=== PATIENT | female | born 2000 | race Caucasian/White ===

== ENCOUNTER 2021-08-15 18:21 | Emergency (ER) | payer OTHER, SELFPAY ==
[2021-08-15 18:54] VITALS: BP 113/80; PULSE 102; RESP 18; TEMP 37.3; O2SAT 100
[2021-08-15] MEDS: ONDANSETRON HCL ODT 4 MG TABLET PO (19:22)
--- NOTE | 2021-08-15 20:18 | ED.NAVMDI ---
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 Mother and patient states she has a shorter couple day history of diarrhea x2. No fever, tenesmus, blood, travel history, vomiting, abdominal pain. Prior to this patient has been on PPI for chronic nausea without weight loss. No loss of taste/smell, S OB, rash, vomiting, CP. Related Data Home Medications Medication Instructions Recorded Confirmed escitalopram oxalate 20 mg PO DAILY 08/15/21 08/15/21 norethindrone-e.estradiol-iron 1 tablet PO DAILY 08/15/21 08/15/21 [Ailyn 24 Fe] omeprazole 40 mg PO DAILY 08/15/21 08/15/21 Allergies Allergy/AdvReac Type Severity Reaction Status Date / Time Penicillins Allergy Intermediate Nausea and Verified 08/15/21 19:33 Vomiting amoxicillin [From Augmentin] Allergy Mild Rash Verified 08/15/21 19:32 clavulanic acid Allergy Mild Rash Verified 08/15/21 19:32 [From Augmentin] Review of Systems Review of Systems: General/Constitutional: No weight loss,fever Eyes: N0: Redness,discharge Ears/Nose/Throat: No: Epistaxis,ear discharge Respiratory: Denies: Hemoptysis Gastrointestinal: No Vomiting, Bleeding-rectal Skin: No Lumps, eruption Neurologic: No Focal Weakness,Sz Hematologic: Denies: Petechiae/Purpura Psychiatric: No: Suicida ideationl All Other Systems: Reviewed and Negative [facility] Comments At time of signature, agree with nursing past medical, surgical, social and family history. There is no relevant family history pertinent to the presenting complaint Exam Narrative: General Appearance: Lean/thin, well appearing, No distress EYE: PERRLA, Conjunctiva clear Ears: External ear normal Nose: Normal nose Mouth/Throat: Normal appearing, Normal lips Neck: Supple Respiratory: Airway patent, No respiratory distress Cardiovascular: RRR Abdomen: Soft, Non-tender, No massess, increased BS Musculoskeletal: Full ROM Skin: Warm, Dry Neurological: A&O x3, CN II-X intact Psychiatric: Normal mood, Normal affect Course Vital Signs Vital signs: Vital Signs Temperature 99.2 F 08/15/21 18:54 Pulse Rate 102 H 08/15/21 18:54 Respiratory Rate 18 08/15/21 18:54 Blood Pressure 113/80 08/15/21 18:54 Pulse Oximetry 100 08/15/21 18:54 Temperature 99.2 F 08/15/21 18:54 Pulse Rate 102 H 08/15/21 18:54 Respiratory Rate 18 08/15/21 18:54 Blood Pressure 113/80 08/15/21 18:54 Pulse Oximetry 100 08/15/21 18:54 Discharge Plan Discharge Clinical Impression: Diarrhea Patient Disposition: Home, Self-Care Condition: Stable Instructions: Acute Diarrhea (ED) Additional Instructions: May try OTC preparations for diarrhea like Imodium Prescriptions: New ondansetron HCl [Zofran] 4 mg tablet 4 mg PO BID PRN (Reason: nausea and vomiting) Qty: 10 RF: 2 No Action omeprazole 40 mg capsule,delayed release(DR/EC) 40 mg PO DAILY RF: 0 escitalopram oxalate 20 mg tablet 20 mg PO DAILY RF: 0 norethindrone-e.estradiol-iron [Ailyn 24 Fe] 1 mg-20 mcg (24)/75 mg (4) tablet 1 tablet PO DAILY RF: 0 Other Ambulatory Orders: SARS-CoV-2 RNA, Qual RT-PCR (Routine) Location: Determined by Patient Ordered By: Jose Joshi Follow-up/Referrals: Tigist,BOBBI Coronel [Primary Care Provider] - Stand Alone Forms: Work/School Release IP
== END 2021-08-15 20:22 | disposition home or self-care (01) ==
PROVIDERS: Emergency Provider Emergency Medicine; PCP Nurse Practitioner Adult Health
DX: R19.7 Diarrhea, unspecified (principal); Z20.822 Contact with and (suspected) exposure to COVID-19; K21.9 Gastro-esophageal reflux disease without esophagitis; F41.9 Anxiety disorder, unspecified
CPT/HCPCS: 99213; A9270; G0463

== ENCOUNTER 2022-01-19 01:16 | Day surgery (SDC) | payer OTHER, SELFPAY ==
[2022-01-02 13:01] VITALS: BMI 18.3
[2022-01-19] MEDS: LACTATED RINGERS 1,000 ML 150 ML IV CONT (11:27)
[2022-01-19 11:28] VITALS: BP 129/83; PULSE 107; RESP 20; TEMP 36.4; O2SAT 99; BMI 17.9
--- NOTE | 2022-01-19 11:29 | WPDANESEPPF ---
Anes - Initial Pre Proc Eval Procedure: Operation Date: 01/19/22 13:00 Proposed Procedures p Esophagogastroduodenoscopy - Naveen Paul MD Date/Time: 01/19/22 11:29 Surgeon: Naveen Paul MD Pre Op Diagnosis: nausea Patient Data Age: 21 Gender: F Height: 1.6 m Weight: 47 kg Allergies Allergy/AdvReac Type Severity Reaction Status Date / Time Penicillins Allergy Intermediate Nausea and Verified 01/02/22 13:00 Vomiting amoxicillin [From Augmentin] Allergy Mild Rash Verified 01/02/22 13:00 clavulanic acid Allergy Mild Rash Verified 01/02/22 13:00 [From Augmentin] Home Medications Medication Instructions Recorded Confirmed Type escitalopram oxalate 20 mg PO DAILY 08/15/21 01/02/22 History norethindrone-e.estradiol-iron 1 tablet PO DAILY 08/15/21 01/02/22 History [Ailyn 24 Fe] omeprazole 40 mg PO DAILY 08/15/21 01/02/22 History ondansetron HCl 4 mg tablet 4 mg PO Q8H PRN #90 tablet 11/30/21 01/02/22 Rx Patient hx anesthesia problems: none Family hx anesthesia problems: none Results Review: All pre-operative results and documents have been reviewed as part of the pre-operative evaluation. [facility] Past Medical History Medical History (Updated 11/30/21 @ 15:02 by Naveen Paul MD) Nausea Family History Family History Father Asthma Mother Thyroid activity decreased Social History Social History Smoking status: Never smoker Second hand tobacco smoke exposure: No Alcohol intake: never Substance use: never Living arrangements: with family Gender identity (if verbalized by the patient): Female Spiritual care concerns: No Anes - Eval Final PreProcedure Day of Procedure 01/19/22 11:29 Patient weight: normal Heart: regular rate and rhythm Lungs: clear to auscultation Airway: Mallampati scale class 1 Neurological: alert and oriented Last oral intake: >/= 8 hours ASA classification: II Emergent: no Anesthetic plan: proceed Anesthesia type and monitoring: general GIVS and standard monitoring Results Review: All pre-operative results and documents have been reviewed as part of the pre-operative evaluation. Informed Consent: The patient's anesthetic plan and its attendant risks and benefits were discussed with the patient/family/POA. Questions were solicited and answers provided to the satisfaction of the patient/family/POA.
--- NOTE | 2022-01-19 11:51 | PM.HPGS ---
History of Present Illness History of Present Illness Consent: Risks, benefits, and alternatives have been discussed and questions answered. Patient agrees to proceed with procedure. Chief complaint: nausea Narrative: Joanna Marquez is a 21 year old female with nausea and abdominal discomfort, better with ppi in the morning and zofran prn Review of Systems Constitutional: Constitutional: Denies headache(s) and Denies weakness Eyes: Eyes: Denies blurry vision ENT: Reports Normal hearing present, Denies headache(s) and Denies neck pain Cardiovascular: Cardiovascular: Denies chest pain and Denies dyspnea Respiratory: Respiratory: Denies dyspnea Gastrointestinal: Gastrointestinal: Reports no additional gastrointestinal complaints Genitourinary: Genitourinary: Denies dysuria Musculoskeletal: Musculoskeletal: Denies neck pain Integumentary/Breasts: Skin/Breast: Denies dry skin Neurologic: Reports Normal hearing present, Denies headache(s) and Denies weakness Psychiatric: Psychiatric: Denies anxiety Endocrine: Endocrine: Denies change in body appearance Hematologic/Lymphatic: Hematologic/Lymphatic: Denies easy bleeding Allergic/Immunologic: Allergic/Immunologic: Denies urticaria PMFSH Past Medical History Medical History (Updated 11/30/21 @ 15:02 by Naveen Paul MD) Nausea Family History Family History Father Asthma Mother Thyroid activity decreased Social History Social History Smoking status: Never smoker Second hand tobacco smoke exposure: No Alcohol intake: never Substance use: never Living arrangements: with family Gender identity (if verbalized by the patient): Female Spiritual care concerns: No Meds Home Medications and Allergies Home Medications Medication Instructions Recorded Confirmed Type escitalopram oxalate 20 mg PO DAILY 08/15/21 01/02/22 History norethindrone-e.estradiol-iron 1 tablet PO DAILY 08/15/21 01/02/22 History [Ailyn 24 Fe] omeprazole 40 mg PO DAILY 08/15/21 01/02/22 History ondansetron HCl 4 mg tablet 4 mg PO Q8H PRN #90 tablet 11/30/21 01/02/22 Rx Allergies Allergy/AdvReac Type Severity Reaction Status Date / Time Penicillins Allergy Intermediate Nausea and Verified 01/02/22 13:00 Vomiting amoxicillin [From Augmentin] Allergy Mild Rash Verified 01/02/22 13:00 clavulanic acid Allergy Mild Rash Verified 01/02/22 13:00 [From Augmentin] Vital Signs Vital Signs - 24 hr 01/19/22 11:28 Temperature 97.6 F Pulse Rate 107 H Respiratory Rate 20 Blood Pressure 129/83 Pulse Oximetry 99 Exam Const: General: comfortable and no acute distress HENMT: General nose exam: Normal nares present Eyes: General: appearance normal, both eyes and all related structures Neck: Neck: no JVD Resp: Auscultation: clear to auscultation bilaterally Cardio: Rate: regular rate Rhythm: regular rhythm GI: Inspection: non-distended GI Palp: Yes Soft to palpation Skin: General skin exam: normal color Neuro: General: gait normal Speech: normal speech Extrem: General: normal to inspection Psych: Mental Status: mental status grossly normal Assessment and Plan Assessment and plan (1) Nausea: Code(s): R11.0 - Nausea Status: Acute Assessment and Plan: egd with bx, on zofran prn (2) GERD (gastroesophageal reflux disease): Code(s): K21.9 - Gastro-esophageal reflux disease without esophagitis Status: Acute
[2022-01-19 12:07] VITALS: BP 90/57; PULSE 88; RESP 21; O2SAT 99
[2022-01-19 12:17] VITALS: BP 105/72; PULSE 76; RESP 15; O2SAT 100
[2022-01-19 12:27] VITALS: BP 101/67; PULSE 81; RESP 38; O2SAT 100
== END 2022-01-19 12:36 | disposition home or self-care (01) ==
PROVIDERS: PCP Nurse Practitioner Adult Health; Visit Provider Internal Medicine Gastroenterology
PROC: 0DJ08ZZ Inspection of Upper Intestinal Tract, Via Natural or Artificial Opening Endoscopic (ICD-10-PCS; CPT 43235; principal; 2022-01-19 13:00)
DX: R10.13 Epigastric pain (principal); R11.0 Nausea; K21.9 Gastro-esophageal reflux disease without esophagitis
CPT/HCPCS: 43239; 88305; J2704; J7120

== ENCOUNTER 2022-02-06 08:41 | Outpatient (CLI) | payer OTHER, SELFPAY ==
--- NOTE | ~2022-02-06 | US_ITS ---
US abdomen complete EXAMINATION: US Abdomen Complete INDICATION: Nausea for 5-6 months PROCEDURE: Realtime High Resolution abdomen ultrasound. COMPARISON: No prior studies for comparison FINDINGS: Gallbladder within normal limits. No gallstones, pericholecystic fluid, gallbladder wall t hickening or biliary dilatation. Common bile duct measures 3 mm. Liver echotexture within normal limits without focal mass. Pancreas within normal limits. Pancreati c tail is obscured by bowel gas. Spleen is unremarkeable. Renal echotexture is within normal limits bilaterally without hydronephrosis, contour deforming mass or renal stone. Right kidney measures 10.3 cm. Left kidney measures 10.5 cm. Visualized aspects of the aorta and IVC are within normal limits. Portal vein is patent. No sonograph ic George's sign indicated by the technologist. IMPRESSION: 1: Normal abdominal ultrasound. Reviewed, dictated and finalized at location A.
== END 2022-02-06 08:42 | disposition home or self-care (01) ==
PROVIDERS: PCP Nurse Practitioner Adult Health; Visit Provider Internal Medicine Gastroenterology
DX: R11.0 Nausea (principal); K21.9 Gastro-esophageal reflux disease without esophagitis
CPT/HCPCS: 76700

== ENCOUNTER 2022-08-27 10:43 | Emergency (ER) | payer OTHER, SELFPAY ==
[2022-08-27 10:53] VITALS: BP 117/70; PULSE 118; RESP 20; TEMP 36.4; O2SAT 99
--- NOTE | 2022-08-27 11:06 | ED.URI ---
HPI - URI/Sore Throat General Chief Complaint: Upper Respiratory Infection Stated Complaint: fever,cough,sorethroat Time Seen by Provider: 08/27/22 11:06 Source: patient and RN notes reviewed Mode of arrival: ambulatory Limitations: no limitations History of Present Illness HPI Narrative: 22-year-old female presented for complaint of sore throat, headache, body aches, sinus pressure/congestion, cough, fever/chills. onset 2 days. She denies shortness of breath, wheezing, abdominal pain, vomiting or diarrhea. She is taking Mucinex for symptoms. MD elicited complaint: cough Related Data Home Medications Medication Instructions Recorded Confirmed escitalopram oxalate 20 mg tablet 20 mg PO DAILY 08/15/21 08/27/22 norethindrone 1 mg-ethinyl 1 tablet PO DAILY 08/15/21 08/27/22 estradiol 20 mcg (24)-iron 75 mg (4) tablet (Ailyn 24 Fe) Allergies Allergy/AdvReac Type Severity Reaction Status Date / Time Penicillins Allergy Intermediate Nausea and Verified 08/27/22 10:52 Vomiting amoxicillin [From Augmentin] Allergy Mild Rash Verified 08/27/22 10:52 clavulanic acid Allergy Mild Rash Verified 08/27/22 10:52 [From Augmentin] Review of Systems Review of Systems: ROS per HPI PMFSH Past Medical History Medical History Nausea Family History Family History Father Asthma Mother Thyroid activity decreased Social History Social History Smoking status: Never smoker Second hand tobacco smoke exposure: No Alcohol intake: never Substance use: never Gender identity (if verbalized by the patient): Female Spiritual care concerns: No Exam Narrative: GENERAL: Ill-appearing, nontoxic no acute distress. HEAD: Normocephalic EYES: PERRLA, conjunctivae clear ENT: Mucous membranes moist. TMs pearly emanuel with dull light reflex bilaterally; no tragal tenderness. Oropharynx erythematous without lesions or exudate CHEST: Clear to auscultation, breath sounds equal. HEART: Regular rate and rhythm. No murmur heard. SKIN: Warm, dry, no rash. NEURO: Alert Course Course Emergency Course: Patient is aware of diagnosis, understands and agrees to treatment plan. Anticipatory guidance given. Patient agrees to follow-up as directed and is aware of reasons to seek care at the emergency department. Portions of this record may have been created with voice recognition software Level of Care: Express Care Visit Vital Signs Vital signs: Vital Signs Temperature 97.6 F 08/27/22 10:53 Pulse Rate 118 H 08/27/22 10:53 Respiratory Rate 20 08/27/22 10:53 Blood Pressure 117/70 08/27/22 10:53 Pulse Oximetry 99 08/27/22 10:53 Oxygen Delivery Room Air 08/27/22 10:53 Temperature 97.6 F 08/27/22 10:53 Pulse Rate 118 H 08/27/22 10:53 Respiratory Rate 20 08/27/22 10:53 Blood Pressure 117/70 08/27/22 10:53 Pulse Oximetry 99 08/27/22 10:53 Oxygen Delivery Room Air 08/27/22 10:53 reviewed MDM - URI/Sore Throat MDM Narrative Medical decision making narrative: flu positive. Results reviewed with patient. Advised supportive measures and signs/symptoms to go to the ER. Pt is appropriate for outpt treatment and f/u. Differential Diagnosis Differential diagnosis: Likely upper respiratory infection, sinusitis, viral infection and influenza Discharge Plan Discharge Clinical Impression: Influenza Patient Disposition: Home, Self-Care Condition: Stable Instructions: Influenza (ED) Additional Instructions: Influenza positive You should avoid crowds until you are fever free for 24 hours without the use of fever reducing medications, or the symptoms are improved Rest. Drink plenty of fluids. Tylenol and ibuprofen every 8 hours as needed for pain/fever Recommend Flonase spray and Zyrtec (or Clariti
== END 2022-08-27 11:22 | disposition home or self-care (01) ==
PROVIDERS: Emergency Provider Nurse Practitioner Family
DX: J10.1 Influenza due to other identified influenza virus with other respiratory manifestations (principal)
CPT/HCPCS: 87804; 99213; G0463

== ENCOUNTER 2023-07-30 15:10 | Emergency (ER) | payer OTHER, SELFPAY ==
[2023-07-30] VITALS (24 sets, daily range): BP systolic 96–113; BP diastolic 67–83; PULSE 68–120; RESP 12–20; TEMP 36.5; O2SAT 90–100
--- NOTE | ~2023-07-30 | CT_ITS ---
EXAMINATION: CT abdomen pelvis w con DATE: 07/30/2023 18:29 INDICATION: abd pain, nausea TECHNIQUE: Computed tomography (CT) of the abdomen and pelvis was performed with 100 mL Omnipaque-350 intravenous contrast. Automated exposure control and iterative reconstruction technique were employe d. The dose-length product was 199.95 mGy-cm. COMPARISON: None. FINDINGS: Lower thorax: Unremarkable Liver: Normal. Biliary/Gallbladder: Gallbladder is normal. No bile duct dilation. Pancreas: No mass or duct dilation. Spleen: Normal. Adrenals:No mass. Kidneys: No suspicious mass, obstructing stone, or hydronephrosis. GI tract: Esophageal and gastric wall edema. No small or large bowel dilation. Appendix not confident ly visualized due to the paucity of intra-abdominal fat and multiple loops of overlapping bowel. Mesentery/Peritoneum: No ascites, mass, or free air. Retroperitoneum: No mass. Pelvis: Pelvic organs are within normal limits. Soft Tissues: Soft tissues and body wall unremarkable. Bones: No acute osseous finding. IMPRESSION: Mild esophagitis/gastritis. Otherwise, no abdominopelvic process detected. Reviewed, dictated and finalized at location K. [facility]
--- NOTE | 2023-07-30 16:16 | ED.ABDPAIN ---
HPI - Abdominal Pain General Chief Complaint: Abdominal Pain <[place] Dubose Last Filed: 07/30/23 16:27> Stated Complaint: abd pain/loss of appetite <[place] Dubose Last Filed: 07/30/23 16:27> Time Seen by Provider: 07/30/23 17:13 <[place] Dubose Last Filed: 07/30/23 16:27> Source: patient <[place] Dubose Last Filed: 07/30/23 16:27> Mode of arrival: ambulatory <[place] Dubose Last Filed: 07/30/23 16:27> Limitations: no limitations <[place] Dubose Last Filed: 07/30/23 16:27> History of Present Illness HPI narrative: Patient is a 22 y/o female who presents to the ED with c/o abdominal pain and loss of appetite. Patient reports having intermittent abdominal pain for the last several months. She states pain is mostly in her lower abdomen, but does change locations. She has seen her PCP and OBGYN for this and had two negative USs and a negative CT scan. She states the pain has worsened to the point it has been interfering with her daily life which prompted her presentation today. The pain was thought to have been related to constipation, and patient was rx'd something for this. She states her BMs have been normal for the most part. Last BM this morning. Reports occasional nausea and loss of appetite for the last 2 weeks, denies diarrhea, fevers, dysuria, hematuria, abnormal vaginal bleeding. <[place] Dubose Last Filed: 07/30/23 16:27> Related Data Home Medications: Home Medications Medication Instructions Recorded Confirmed escitalopram oxalate 20 mg tablet 20 mg PO DAILY 08/15/21 08/27/22 norethindrone 1 mg-ethinyl 1 tablet PO DAILY 08/15/21 08/27/22 estradiol 20 mcg (24)-iron 75 mg (4) tablet (Ailyn 24 Fe) <[place] Dbuose Last Filed: 07/30/23 16:27> Allergies/Adverse Reactions: Allergies Allergy/AdvReac Type Severity Reaction Status Date / Time Penicillins Allergy Intermediate Nausea and Verified 07/30/23 16:43 Vomiting prochlorperazine Allergy Intermediate Anxiety Verified 07/30/23 20:21 [From Compazine] amoxicillin [From Augmentin] Allergy Mild Rash Verified 07/30/23 16:43 clavulanic acid Allergy Mild Rash Verified 07/30/23 16:43 [From Augmentin] <Massiel Parker PA-C - Last Filed: 07/30/23 16:27> Review of Systems Review of Systems: CONSTITUTIONAL: Denies fever GASTROINTESTINAL: Reports abdominal pain, nausea. Denies vomiting, or diarrhea. GENITOURINARY: Denies dysuria <Roro Andersen PA-C - Last Filed: 07/30/23 20:29> All systems reviewed & are unremarkable except as noted in HPI and below <Roro Andersen PA-C - Last Filed: 07/30/23 20:29> Constitutional: Constitutional: Reports fatigue, Denies fever(s) and Reports weakness <Massiel Parker PA-C - Last Filed: 07/30/23 16:27> Gastrointestinal: Gastrointestinal: Reports abdominal pain, Denies constipation, Denies diarrhea, Reports nausea and Denies vomiting <Massiel Parker PA-C - Last Filed: 07/30/23 16:27> Genitourinary: Genitourinary: Denies abnormal vaginal bleeding, Denies hematuria and Denies dysuria <Massiel Parker PA-C - Last Filed: 07/30/23 16:27> [facility] Past Medical History Medical History: Medical History Nausea <Massiel Parker PA-C - Last Filed: 07/30/23 16:27> Family History Family History: Family History Father Asthma Mother Thyroid activity decreased <Massiel Parker PA-C - Last Filed: 07/30/23 16:27> Social History Social History: Social History Smoking status: Never smoker Second hand tobacco smoke exposure: No Alcohol intake: never Substance use: never Living arrangements: with family Occupation/Educ
--- NOTE | 2023-07-30 16:30 | ECG_ITS ---
Measurements Intervals [place] Rate: 77 P: 76 [place]: 160 QRS: 72 QRSD: 93 T: 57 QT: 389 QTc: 442 Interpretive Statements SINUS RHYTHM INCOMPLETE RIGHT BUNDLE BRANCH BLOCK BASELINE WANDER- II, III BORDERLINE ECG NO PREVIOUS ECG AVAILABLE FOR COMPARISON Electronically Signed On 07-30-2023 16:55:24 LICENSED LO[employer] OFFICER ASSISTANT by Tod Nassar D.O.
[2023-07-30 16:40] LABS: Glucose Point of Care 107 mg/dl (65-105)
[2023-07-30] MEDS: SODIUM CHLORIDE 0.9% IV 1,000 ML 999 ML IV CONT ×2 (16:41→17:33)
[2023-07-30 16:46] LABS: Basophils Absolute Auto 0.1 K/mm3 (0.0-0.1); Basophils Percent Auto 0.9 % (0.2-1.2); Eosinophils Percent Auto 0.5 % (0-4.4); Hematocrit 48.8 % (37.0-47.0); Hemoglobin 16.4 g/dL (12.0-15.0); Immature Granulocyte Absolute 0.01 K/mm3 (0.00-0.031); Immature Granulocyte Percent A 0.2 % (0-0.5); Lymphocytes Absolute Auto 2.23 K/mm3 (0.9-3.2); Lymphocytes Percent Auto 35.3 % (18.3-44.2); Mean Corpuscular HGB Conc 33.6 g/dl (32-36); Mean Corpuscular Hemoglobin 29.1 pg (26-34); Mean Corpuscular Volume 86.7 fl (80-100); Mean Platelet Volume 10.9 fl (7.4-10.4); Monocytes Absolute Auto 0.3 K/mm3 (0.1-0.6); Monocytes Percent Auto 4.3 % (2.6-8.5); Neutrophils Absolute Auto 3.7 K/mm3 (1.3-6.7); Neutrophils Percent Auto 58.8 % (45.5-73.1); Platelet Count Result 258 k/mm3 (150-375); Red Blood Count 5.63 M/mm3 (4.2-5.4); White Blood Count 6.3 K/mm3 (4.5-10.0)
[2023-07-30 17:00] LABS: Alanine Aminotransferase 22 U/L (6-35); Albumin Level 4.8 g/dL (3.5-5.1); Alkaline Phosphatase 41 U/L (38-126); Anion Gap 11 mmol/L (8-16); Aspartate Amino Transferase 29 U/L (14-36); Bilirubin,Total 0.7 mg/dL (0.2-1.3); Blood Urea Nitrogen 8 mg/dL (7-17); Calcium 9.7 mg/dL (8.4-10.2); Carbon Dioxide 25 mmol/L (22-30); Chloride 105 mmol/L (98-107); Estimated CRCL calculation 81 ml/min; Estimated Glomerular Filt Rate > 60; Glucose 92 mg/dL (65-110); Magnesium 1.9 mg/dL (1.6-2.3); Potassium 3.9 mmol/L (3.4-5.0); Sodium 141 mmol/L (137-145)
[2023-07-30 17:05] LABS: Appearance Urine Cloudy (Clear); Bacteria Urine Rare /hpf; Bilirubin Urine Negative (Negative); Color Urine Yellow (Yellow); Glucose Urine UA Negative (Negative); Ketones Urine Negative (Negative); Leukocyte Esterase Ur 1+ LEU/UL (Negative); Need Manual Microscopic Reviewed; Nitrate Urine Negative (Negative); Non Pathogenic Casts 0-2; Protein Urine Negative (Negative); Specific Grav Ur 1.024 (1.001-1.035); Squamous Epithelial Cell Urine Occasional /hpf (Few); WBC Urine 0-5 /hpf
[2023-07-30 17:07] LABS: Add Urine Microscopic? YES
[2023-07-30 17:08] LABS: Lipase 83 U/L (23-300)
[2023-07-30] MEDS: FAMOTIDINE 20 MG/2 ML VIAL IV PUSH (17:34)
[2023-07-30] MEDS: ONDANSETRON INJ 4 MG/2 ML VIAL IV PUSH (17:34)
[2023-07-30] MEDS: PROCHLORPERAZINE EDISYLATE 10 MG/2 ML VIAL IV PUSH (19:15)
[2023-07-30] MEDS: diphenhydrAMINE HCl INJ 50 MG/ML VIAL 25 MG IV PUSH (20:06)
--- NOTE | 2023-07-30 20:24 | PC.NURSE ---
Patient felt anxious after compazine. PA made aware and ordered benadryl that was given (See MAR). This RN checked on patient and she states she feels better now- not as anxious and is tired.
== END 2023-07-30 20:44 | disposition home or self-care (01) ==
PROVIDERS: Physician Assistant; Emergency Provider Physician Assistant; PCP Nurse Practitioner Family
DX: K29.00 Acute gastritis without bleeding (principal)
CPT/HCPCS: 36415; 74177; 80053; 81001; 81025; 82948; 83690; 83735; 85025; 93005; 96361; 96374; 96375; 99284; A9270; J0780; J1200; J2405; J7030; Q9967

== ENCOUNTER 2023-09-12 06:14 | Day surgery (SDC) | payer OTHER, SELFPAY ==
[2023-08-07 09:46] VITALS: BMI 18.8
[2023-09-12 07:21] VITALS: BP 116/75; PULSE 110; RESP 20; TEMP 37.4; O2SAT 99
--- NOTE | 2023-09-12 07:23 | WPDANESEPPF ---
Anes - Initial Pre Proc Eval Procedure: Operation Date: 09/12/23 08:30 Proposed Procedures p Esophagogastroduodenoscopy - Dom Perez MD s Diagnostic Colonoscopy - Dom Perez MD Date/Time: 09/12/23 07:23 Surgeon: Dom Perez MD Pre Op Diagnosis: Nausea, Abdominal Pain Patient Data Age: 23 Gender: F Height: 1.6 m Weight: 48.4 kg Last Vital Signs Temp 37.4 C 09/12/23 07:21 Pulse 110 H 09/12/23 07:21 Resp 20 09/12/23 07:21 BP 116/75 09/12/23 07:21 Pulse Ox 99 09/12/23 07:21 O2 Del Method Room Air 09/12/23 07:21 Allergies Allergy/AdvReac Type Severity Reaction Status Date / Time Penicillins Allergy Intermediate Nausea and Verified 09/12/23 07:14 Vomiting prochlorperazine Allergy Intermediate Anxiety Verified 09/12/23 07:14 [From Compazine] amoxicillin [From Augmentin] Allergy Mild Rash Verified 09/12/23 07:14 clavulanic acid Allergy Mild Rash Verified 09/12/23 07:14 [From Augmentin] Home Medications Medication Instructions Recorded Confirmed Type norethindrone 1 mg-ethinyl 1 tablet PO DAILY 08/15/21 09/12/23 History estradiol 20 mcg (24)-iron 75 mg (4) tablet (Abie 24 Fe) dicyclomine 10 mg capsule See Rx Instructions .Route 08/23/23 09/12/23 Rx .COMPLEX #270 caps pantoprazole 40 mg tablet,delayed See Rx Instructions .Route 08/23/23 09/12/23 Rx release .COMPLEX #90 tabs Patient hx anesthesia problems: none Family hx anesthesia problems: none Results Review: All pre-operative results and documents have been reviewed as part of the pre-operative evaluation. COUNTS INCLUDE 234 BEDS AT THE [facility] Past Medical History Medical History (Updated 09/12/23 @ 07:23 by Ren Valero DO) Abdominal pain Abnormal CT scan, gastrointestinal tract Anxiety GERD (gastroesophageal reflux disease) Nausea Family History Family History Father Asthma Mother Thyroid activity decreased Social History Social History (Reviewed 08/22/23 @ 15:15 by JUAN MIGUEL Sepulveda Smoking status: Never smoker Second hand tobacco smoke exposure: No Alcohol intake: never Alcohol use details: rarely, pt states one drink per month Substance use: never Substance use type: does not use Living arrangements: with family Occupation/Education: student Gender identity (if verbalized by the patient): Female Spiritual care concerns: No Anes - Eval Final PreProcedure Day of Procedure 09/12/23 07:23 Patient weight: normal Heart: regular rate and rhythm Lungs: clear to auscultation and normal air movement Airway: Mallampati scale class II Neurological: alert and oriented Last oral intake: >/= 8 hours ASA classification: II Emergent: no Anesthetic plan: proceed Anesthesia type and monitoring: general GIVS and standard monitoring Results Review: All pre-operative results and documents have been reviewed as part of the pre-operative evaluation. Informed Consent: The patient's anesthetic plan and its attendant risks and benefits were discussed with the patient/family/POA. Questions were solicited and answers provided to the satisfaction of the patient/family/POA.
[2023-09-12] MEDS: LACTATED RINGERS 1,000 ML 150 ML IV CONT (07:54)
--- NOTE | 2023-09-12 08:16 | WPDHPUPDATE1 ---
History and Physical Update Update Date/Time: 09/12/23 08:16 History and Physical has been reviewed, including an updated exam of the patient. There are NO changes in the patient's condition. Risks, benefits, and alternatives have been discussed and questions answered. Patient agrees to proceed with procedure.
[2023-09-12 08:56] VITALS: BP 108/68; PULSE 100; RESP 16; O2SAT 100
[2023-09-12 09:06] VITALS: BP 105/74; PULSE 94; RESP 18; O2SAT 100
--- NOTE | 2023-09-12 11:38 | WPDANESPN ---
Anes - Prog Note Post-Op Date/Time: 09/12/23 11:38 Cardiovascular status: normal Respiratory status: normal Airway patency: baseline Mental status: baseline Post-Op hydration status: normal Vital Signs: Last Vital Signs Temp 37.4 C 09/12/23 07:21 Pulse 94 09/12/23 09:06 Resp 18 09/12/23 09:06 BP 105/74 09/12/23 09:06 Pulse Ox 100 09/12/23 09:06 O2 Del Method Room Air 09/12/23 09:06 Pain Score (VAS): 0 I/O: Intake & Output 09/11/23 09/12/23 09/12/23 23:59 07:59 15:59 Intake Total 600 Balance 600 Post-procedural complaints: none Patient Feedback: Patient satisfied with anesthetic care. Other Findings: Patient vital signs back to baseline. Patient denies nausea and vomiting. Patient's pain under control. Patient OK for discharge.
== END 2023-09-12 09:35 | disposition home or self-care (01) ==
PROVIDERS: PCP Nurse Practitioner Family; Visit Provider Internal Medicine Gastroenterology
PROC: 0DJ08ZZ Inspection of Upper Intestinal Tract, Via Natural or Artificial Opening Endoscopic (ICD-10-PCS; CPT 43235; principal; 2023-09-12 08:30)
PROC: 0DJD8ZZ Inspection of Lower Intestinal Tract, Via Natural or Artificial Opening Endoscopic (ICD-10-PCS; CPT 45378; 2023-09-12 08:30)
DX: R93.3 Abnormal findings on diagnostic imaging of other parts of digestive tract (principal); R10.84 Generalized abdominal pain; R11.0 Nausea
CPT/HCPCS: 45380; 43239

== ENCOUNTER 2023-09-12 07:00 | Outpatient (NON) | payer OTHER, SELFPAY | END 2023-09-12 07:01 | disposition home or self-care (01) | PROVIDERS: PCP Nurse Practitioner Family; Visit Provider Internal Medicine Gastroenterology | DX: R93.3 Abnormal findings on diagnostic imaging of other parts of digestive tract (principal); K21.9 Gastro-esophageal reflux disease without esophagitis | CPT/HCPCS: 88305 ==

== ENCOUNTER 2024-05-22 11:42 | Emergency (ER) | payer BC, SELFPAY ==
[2024-05-22 11:57] VITALS: BP 109/76; PULSE 94; RESP 16; TEMP 36.8; O2SAT 100
--- NOTE | 2024-05-22 12:36 | ED.URI ---
HPI - URI/Sore Throat General Chief Complaint: Upper Respiratory Infection Stated Complaint: pain in chest when inhaling Time Seen by Provider: 05/22/24 12:35 Source: patient, RN notes reviewed and old records reviewed Mode of arrival: ambulatory Limitations: no limitations History of Present Illness HPI Narrative: 23 year old female who presents to [facility] care with 3 day history of cough with some congestion with no mucous production, has fatigue with no fever.. Patient reports that she has some discomfort in her chest with cough and when taking deep breaths. 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 Patient reports no history of asthma, is on control, no recent travel or any blood clotting abnormality. MD elicited complaint: cough and other (discomfort in chest with cough and taking deep breath.) Onset (ago): day(s) (3) Severity: moderate Able to tolerate fluids by mouth: Yes Treatments prior to arrival: other (benadryl) Related Data Home Medications Medication Instructions Recorded Confirmed levonorgestrel 120 mcg-e.estradiol patch 05/22/24 05/22/24 30 mcg/24 hr weekly transderm patch (Twirla) Allergies Allergy/AdvReac Type Severity Reaction Status Date / Time Penicillins Allergy Intermediate Nausea and Verified 05/22/24 12:18 Vomiting prochlorperazine Allergy Intermediate Anxiety Verified 05/22/24 12:18 [From Compazine] amoxicillin [From Augmentin] Allergy Mild Rash Verified 05/22/24 12:18 clavulanic acid Allergy Mild Rash Verified 05/22/24 12:18 [From Augmentin] Review of Systems Review of Systems: CONSTITUTIONAL: Denies malaise, chills, sweats, or fever. fatigue EYES: Denies visual changes, redness, or discharge. ENT: Reports no rhinorrhea, congestion, sinus pain, otalgia and no sore throat. CARDIOVASCULAR: Denies chest pain, palpitations, or edema. RESPIRATORY: Reports non productive cough.? Denies dyspnea.some chest discomfort with cough and taking deep breath GASTROINTESTINAL: Denies abdominal pain, nausea, vomiting, diarrhea SKIN: Denies rash or itching. MUSCULOSKELETAL: Denies myalgia. NEUROLOGIC: Denies headache. All systems reviewed & are unremarkable except as noted in HPI and below PMFSH Past Medical History Medical History Abdominal pain Abnormal CT scan, gastrointestinal tract Anxiety GERD (gastroesophageal reflux disease) Nausea Family History Family History Father Asthma Mother Thyroid activity decreased Social History Social History (Updated 05/23/24 @ 17:29 by Leandra Cheng NP) Smoking status: Never smoker Second hand tobacco smoke exposure: No Alcohol intake: never Alcohol use details: rarely, pt states one drink per month Substance use: never Substance use type: does not use Living arrangements: with family Additional occupation/education comments: teacher Gender identity (if verbalized by the patient): Female Spiritual care concerns: No Comments At time of signature, agree with nursing past medical, surgical, social and family history. There is no relevant family history pertinent to the presenting complaint Exam Narrative: GENERAL: Well-appearing, well-nourished, and in no acute distress. HEAD: Normocephalic EYES: PERRLA, conjunctivae clear ENT: Nares clear, turbinates edematous and erythematous, clear discharge. Mucous membranes moist. TM pearly emanuel with dull light reflex bilaterally; no tragal tenderness. Oropharynx erythematous without lesions. Tonsils not enlarged and without exudate, no drooling, no hoarseness, no trismus, uvula midline. NECK: Supple. No lymphadenopathy CHEST: Clear to auscultation, breath sounds equal. No wheezing, rhonchi, rales, or stridor. No respiratory distress, speaks in full sentences.dry cough with yaneth
[2024-05-22 13:27] LABS: EDCOVIDSCREEN Negative (Negative)
== END 2024-05-22 13:14 | disposition home or self-care (01) ==
PROVIDERS: Emergency Provider Registered Nurse; PCP Physician Assistant
DX: M94.0 Chondrocostal junction syndrome [Tietze] (principal); R05.1 Acute cough; Z20.822 Contact with and (suspected) exposure to COVID-19; K21.9 Gastro-esophageal reflux disease without esophagitis
CPT/HCPCS: 87635; 99213; G0463

== ENCOUNTER 2025-05-19 13:18 | Outpatient (CLI) | payer BC, SELFPAY ==
--- NOTE | 2025-05-19 | ECHO_ITS ---
Patient Info Name: Joanna Marquez Age: 24 years : 2000 Gender: Female Ht: 63 in Wt: 105 lbs BSA: 1.45 m2 HR: 79 bpm BP: 103 / 78 mmHg Heart Rhythm: Sinus Rhythm Technical Quality: Good Exam Date: 05/19/2025 1:52 PM Patient Status: O Admit Date: 05/19/2025 Exam Type: CA echo doppler color flow Complete two-dimensional, color flow and Doppler transthoracic echocardiogram is performed. Brim Buster: Kay Sparks Attending Provider: Emily Carrillo Summary 1. Complete two-dimensional, color flow and Doppler transthoracic echocardiogram is performed. 2. Unremarkable echocardiogram. 3. Chiari network noted in the right atrium(normal anatomical variant). Left Ventricle Left ventricular chamber dimension is normal. Left ventricular systolic function is normal, estimated at 60-65. The left ventricular diastolic function is normal. Right Ventricle Right ventricular chamber dimension is normal. Left Atria Left atrial chamber dimension is normal. Right Atria Right atrial chamber dimension is normal. Aortic Valve The aortic valve is normal. Pulmonic Valve The pulmonic valve is normal. Mitral Valve The mitral valve has normal leaflets. Tricuspid Valve The tricuspid valve leaflets are normal. Pericardium/Pleural The pericardium appears normal. Aorta The aortic root size at the sinus of Valsalva is normal. Left Ventricular Outflow Tract Name Value Normal LVOT 2D LVOT Diameter 2.0 cm LVOT Doppler LVOT Peak Velocity 107 cm/s LVOT Peak Gradient 5 mmHg LVOT Mean Gradient 3 mmHg LVOT VTI 23 cm LVOT Stroke Volume 68 ml LVOT CO 5.4 l/min LVOT CI 3.7 l/min/m2 Pulmonic Valve Name Value Normal RVOT Doppler RVOT Peak Velocity 70 cm/s RVOT Peak Gradient 2 mmHg PV Doppler PV Peak Velocity 95 cm/s PV Peak Gradient 4 mmHg Mitral Valve Name Value Normal MV Diastolic Function MV E Peak Velocity 74 cm/s MV A Peak Velocity 57 cm/s MV E/A 1.3 MV Decel Time (PW) 301 ms MV Annular TDI MV E/e' (Septal) 5.6 MV E/e' (Lateral) 3.7 MV E/e' (Average) 4.7 Aortic Valve Name Value Normal AV Doppler AV Peak Velocity 136 cm/s AV Peak Gradient 7 mmHg AV Area (Cont Eq Estrada) 2.4 cm2 AV DI (Estrada) 0.78 AV Regurgitation 2D LVOT Area 3.0 cm2 Ventricles Name Value Normal LV Dimensions 2D/MM IVS Diastolic Thickness (2D) 0.6 cm 0.6-1.0 LVID Diastole (2D) 4.1 cm 3.8-5.2 LVIW Diastolic Thickness (2D) 0.5 cm 0.6-0.9 LVID Systole (2D) 2.5 cm 2.2-3.5 LVOT Diameter 2.0 cm LV Mass (2D Cubed) 62.44 g 67.00-162.00 LV Mass Index (2D Cubed) 43 g/m2 43-95 Relative Wall Thickness (2D) 0.25 <=0.42 LV Fractional Shortening/Ejection Fraction 2D/MM LV Fractional Shortening (2D) 38 % 27-45 LV EF (2D Teichholz) 69 % LV Diastolic Volume (4C MOD) 53 ml LV EF (4C MOD) 58 % LV Diastolic Volume (2C MOD) 78 ml LV EF (2C MOD) 60 % LV Diastolic Volume (BP MOD) 65 ml 46-106 LV Diastolic Volume Index (BP MOD) 45 ml/m2 29-61 LV Systolic Volume (BP MOD) 27 ml 14-42 LV Systolic Volume Index (BP MOD) 19 ml/m2 8-24 LV EF (BP MOD) 58 % 54-74 LV Diastolic Length (4C) 7.7 cm LV Systolic Length (4C) 6.1 cm LV Stroke Volume (4C MOD) 31 ml Atria Name Value Normal LA Dimensions LA Volume (4C A-L) 16 ml LA Volume (BP A-L) 18 ml RA Dimensions RA Systolic [place] Length (4C) 4.0 cm 2.2-2.8 RA Area (4C) 7.7 cm2 <=18.0 Report Signatures
--- OUTSIDE RECORDS SUMMARY | 2025-05-19 14:01 | XMS_ITS | Patient Health Record ---
Author Organization [facility] Address [address] [place] [address] Care Team Providers Care Automation Technician Name Role Phone Melba Morton Unavailable [phone] Reason For Referral No Information Medications Medication SIG (Take, Route, Frequency, Duration) Notes Start Date End Date Status Omeprazole 40 MG Capsule Delayed Release Oral 06/25/2022 Active Escitalopram Oxalate 20 MG Tablet Oral 06/25/2022 Active Lexapro 20 MG Tablet Oral 06/25/2022 Active BARTOLO 24 FE 1 MG-20 MCG (24)/75 MG (4) TABLET *Reorder from Omni-ID for eRx and Interaction Alerts* 06/25/2022 Active Immunizations Vaccine Route Administration Date Status Comme nts DTaP Unknown 2001 Administered DTaP Unknown 2001 Administered DTaP Unknown 02/09/2002 Administered DTaP Unknown 02/05/2003 Administered DTaP Unknown 01/08/2007 Administered Hep A, unspecified formulation Unknown 04/10/2013 Admin istered Hep A, unspecified formulation Unknown 04/23/2014 Admin istered Hib-Hep B Unknown 2001 Administered Hib-Hep B Unknown 2001 Administered Hib-Hep B Unknown 08/24/2002 Administered meningococcal B, recombinant , OMV, adjuvanted Unknown 02/11/2020 Administered meningococcal B, recombinant , OMV, adjuvanted Unknown 04/01/2020 Administered Meningococcal MCV4O Unknown 08/14/2017 Administered Meningococcal MCV4P Unknown 04/10/2013 Administered MMR Unknown 08/24/2002 Administered MMR Unknown 01/08/2007 Administered OPV Unknown 2001 Administered OPV Unknown 2001 Administered OPV Unknown 02/09/2002 Administered OPV Unknown 01/08/2007 Administered Pfizer Biontech Covid-19 Vac cine 2nd dose Unknown 11/15/2020 Administered Pfizer Biontech Covid-19 Vac cine 2nd dose Unknown 12/09/2020 Administered Pfizer Biontech Covid-19 Vac cine 2nd dose Unknown 09/05/2021 Administered Pneumococcal conjugate PCV 13 Unknown 2001 Admini stered Pneumococcal conjugate PCV 13 Unknown 2001 Admini stered Pneumococcal conjugate PCV 13 Unknown 02/09/2002 Admini stered Pneumococcal conjugate PCV 13 Unknown 08/24/2002 Admini stered Tdap Unknown 04/10/2013 Administered Tdap Unknown 08/14/2017 Administered Varicella Unknown 08/24/2002 Administered Varicella Unknown 01/08/2007 Administered Social History Social History Additional Details Category Social Info Options Details Migrated Social History Migrated Social History Alcohol Intake: None 07/12/2020,Tobacco Years: Never smoker 07/12/2020,Smoking Status: 0 07/12/2020 Plan Of Treatment No Information Insurance Providers Payer Name Payer Address Payer Phone Subscriber Number Group Number Insured Name Patient Relationship to Insured Coverage Start Date Coverage End Date [facility] [address] [place] [address] [id number] SCOTT JOHNSON Child - Insured has Financial Responsibility
--- NOTE | 2025-05-31 16:19 | WPDHOLTEREM ---
Holter/Event Monitor Holter/Event Monitor Date of procedure: 05/19/25 Holter/Event Procedure: 3-7 Day Holter Monitor Indications: Syncope Conclusion: 1. 3 days holter monitor on 05/19/25. 2. Underlying rhythm is sinus rhythm. HR range 56-144 bpm; average 83 bpm. 3. There are rare premature supraventricular complexes. No supraventricular tachycardia. 4. There are rare premature ventricular complexes. No ventricular tachycardia. 5. no significant pauses greater than 3 seconds. 6. Patient reports 7 episodes of symptoms of lightheadedness which demonstrate sinus rhythm, HR range 68-105 bpm with 1 episode with PVC.
== END 2025-05-19 13:19 | disposition home or self-care (01) ==
PROVIDERS: PCP Physician Assistant; Visit Provider Physician Assistant
DX: R55 Syncope and collapse (principal)
CPT/HCPCS: 93242; 93306